=== PATIENT | male | born 1960 | race Caucasian/White ===

== ENCOUNTER → 2023-08-01 09:40 | Outpatient (REF) | payer BC, SELFPAY ==
[2023-08-01 12:55] LABS: ALT (SGPT) 41 U/L (0-50); AST (SGOT) 55 U/L (17-59); Albumin 4.9 g/dl (3.5-5.0); Alkaline Phosphatase 67 U/L (38-126); Blood Urea Nitrogen 20 mg/dl (9-20); Carbon Dioxide 27 mmol/L (22-30); Chloride 101 mmol/L (98-107); Glucose 112 mg/dl (70-99); HDL Cholesterol 75 mg/dl; LDL Cholesterol, Calculated 86 mg/dl; Potassium 4.5 mmol/L (3.5-5.1); Sodium 138 mmol/L (135-145); Total Bilirubin 1.3 mg/dl (0.2-1.3); Total Cholesterol 182 mg/dl (50-199); Total Protein 7.7 g/dl (6.3-8.2); Triglyceride 106 mg/dl (10-149); Very Low Density Lipoprotein 21 mg/dl (0-30); eGFR > 60.00
== END ==
LOC: HWLAB 09:40
PROVIDERS: ATTENDING PHYSICIAN Family Medicine
DX: I10 Essential (primary) hypertension (principal); E78.2 Mixed hyperlipidemia; Z95.0 Presence of cardiac pacemaker; Z86.79 Personal history of other diseases of the circulatory system; M15.9 Polyosteoarthritis, unspecified
CPT/HCPCS: 36415; 80053; 80061

== ENCOUNTER → 2024-04-03 11:40 | Outpatient (REF) | payer BC, SELFPAY | LOC: CLAB 11:40 | PROVIDERS: Pathology Anatomic Pathology & Clinical Pathology; ATTENDING PHYSICIAN Dermatology MOHS-Micrographic Surgery | DX: D48.5 Neoplasm of uncertain behavior of skin (principal) | CPT/HCPCS: 88305 ==

== ENCOUNTER → 2024-05-08 09:07 | Outpatient (REF) | payer BC, SELFPAY ==
[2024-05-08 11:41] LABS: Hematocrit 43.3 % (39.0-52.0); Hemoglobin 14.9 g/dL (13.0-18.0); Mean Corp Hgb Conc. 34.4 g/dL (33.0-37.0); Mean Corpuscular Hgb 32.5 pg (27.0-31.0); Mean Corpuscular Volume 94.5 fL (80.0-94.0); Mean Platelet Volume 9.2 fL (7.4-10.4); Platelet Count 211 10^3/uL (130-400); Red Blood Cell Count 4.58 10^6/uL (4.70-6.10); White Blood Cell Count 4.5 10^3/uL (4.8-10.8)
[2024-05-08 12:03] LABS: ALT (SGPT) 31 U/L (0-50); AST (SGOT) 41 U/L (17-59); Albumin 4.8 g/dl (3.5-5.0); Alkaline Phosphatase 58 U/L (38-126); Blood Urea Nitrogen 20 mg/dl (9-20); Calcium 9.6 mg/dl (8.4-10.2); Carbon Dioxide 29 mmol/L (22-30); Chloride 100 mmol/L (98-107); Glucose 110 mg/dl (70-99); HDL Cholesterol 66 mg/dl; LDL Cholesterol, Calculated 84 mg/dl; Potassium 4.4 mmol/L (3.5-5.1); Sodium 137 mmol/L (135-145); Total Bilirubin 0.9 mg/dl (0.2-1.3); Total Cholesterol 169 mg/dl (50-199); Total Protein 7.4 g/dl (6.3-8.2); Triglyceride 95 mg/dl (10-149); Very Low Density Lipoprotein 19 mg/dl (0-30); eGFR > 60.00
[2024-05-08 12:23] LABS: PSA, Total - Screen 0.43 ng/ml (0.0-4.0); TSH 1.74 uIU/ml (0.47-4.68)
== END ==
LOC: HWLAB 09:07
PROVIDERS: ATTENDING PHYSICIAN Family Medicine
DX: Z00.00 Encounter for general adult medical examination without abnormal findings (principal); I10 Essential (primary) hypertension; E78.2 Mixed hyperlipidemia; Z86.79 Personal history of other diseases of the circulatory system; Z95.0 Presence of cardiac pacemaker
CPT/HCPCS: 36415; 80053; 80061; 84443; 85027; G0103

== ENCOUNTER → 2024-05-18 09:52 | Outpatient (REF) | payer BC, SELFPAY | LOC: HWRCS 09:52 | PROVIDERS: ATTENDING PHYSICIAN Internal Medicine; FAMILY PHYSICIAN Family Medicine | DX: Z95.0 Presence of cardiac pacemaker (principal); I10 Essential (primary) hypertension | CPT/HCPCS: 93306 ==

== ENCOUNTER → 2024-10-02 12:54 | Outpatient (REF) | payer BC, SELFPAY | LOC: HWRAD 12:54 | PROVIDERS: ATTENDING PHYSICIAN Radiology Diagnostic Radiology; FAMILY PHYSICIAN Family Medicine; REFERRING PHYSICIAN Otolaryngology | DX: Z01.818 Encounter for other preprocedural examination (principal); H93.11 Tinnitus, right ear; H90.A22 Sensorineural hearing loss, unilateral, left ear, with restricted hearing on the contralateral side | CPT/HCPCS: 71046 ==

== ENCOUNTER → 2024-10-04 13:28 | Outpatient (REF) | payer BC, SELFPAY | LOC: MRI 3T 13:28 | PROVIDERS: ATTENDING PHYSICIAN Otolaryngology; FAMILY PHYSICIAN Family Medicine | DX: H93.11 Tinnitus, right ear (principal); H90.A22 Sensorineural hearing loss, unilateral, left ear, with restricted hearing on the contralateral side; M54.2 Cervicalgia | CPT/HCPCS: 70553; 72156; 76014; 76015; A9575 ==

== ENCOUNTER → 2024-11-05 11:37 | Outpatient (REF) | payer BC, SELFPAY ==
[2024-11-05 16:27] LABS: Albumin 4.8 g/dl (3.5-5.0); Carbon Dioxide 27 mmol/L (22-30); Total Protein 7.6 g/dl (6.3-8.2)
[2024-11-05 16:38] LABS: ALT (SGPT) 37 U/L (0-50); AST (SGOT) 41 U/L (17-59); Alkaline Phosphatase 56 U/L (38-126); Blood Urea Nitrogen 17 mg/dl (9-20); Calcium 9.9 mg/dl (8.4-10.2); Chloride 105 mmol/L (98-107); Glucose 111 mg/dl (70-99); HDL Cholesterol 64 mg/dl; LDL Cholesterol, Calculated 97 mg/dl; Potassium 4.8 mmol/L (3.5-5.1); Sodium 136 mmol/L (135-145); Very Low Density Lipoprotein 31 mg/dl (0-30); eGFR > 60.00
[2024-11-08 12:23] LABS: Rheumatoid Agglutinin Less Than 10 IU (<10 IU)
[2024-11-08 21:54] LABS: ANA, IgG Reflex to HEp-2 None Detected (None Detected)
== END ==
LOC: HWLAB 11:37
PROVIDERS: ATTENDING PHYSICIAN Family Medicine
DX: E78.2 Mixed hyperlipidemia (principal); I10 Essential (primary) hypertension; Z86.79 Personal history of other diseases of the circulatory system; M15.9 Polyosteoarthritis, unspecified; M48.02 Spinal stenosis, cervical region
CPT/HCPCS: 36415; 80053; 80061; 85652; 86038; 86430